=== PATIENT | female | born 1960 | race African-American/Black ===

== ENCOUNTER → 2020-11-26 01:41 | Outpatient (CLI) | payer OTHER, SELFPAY ==
[2020-11-27 08:28] LABS: SARS-CoV-2 RNA PCR Negative
== END ==
PROVIDERS: PCP Family Medicine Sports Medicine; Visit Provider Obstetrics & Gynecology Gynecology
DX: Z01.812 Encounter for preprocedural laboratory examination (principal); Z20.822 Contact with and (suspected) exposure to COVID-19
CPT/HCPCS: C9803; U0003; U0005

== ENCOUNTER 2020-11-29 01:22 | Day surgery (SDC) | payer OTHER, SELFPAY ==
[2020-11-23 09:43] VITALS: BMI 39.0
--- NOTE | 2020-11-29 07:24 | WPDHPUPDATE1 ---
History and Physical Update Update Date/Time: 11/29/20 07:24 History and Physical has been reviewed, including an updated exam of the patient. There are NO changes in the patient's condition. Risks, benefits, and alternatives have been discussed and questions answered. Patient agrees to proceed with procedure.
--- NOTE | 2020-11-29 07:24 | PM.HPGS ---
History of Present Illness History of Present Illness Consent: Risks, benefits, and alternatives have been discussed and questions answered. Patient agrees to proceed with procedure. Chief complaint: Post Menopausal Bleeding Narrative: Oneyda Echeverria is a 60 year old female with episode of postmenopausal bleeding. U/s done and endometrial lining is slightly thickened and patient has a history of endometrial polyps. Reviewed procedure including possible pathology, risks of infection, bleeding, and perforation. Patient agrees to proceed. Review of Systems Review of Systems: Narrative: not repeated day of surgery; patient states no changes in status [facility] Past Medical History Medical History (Updated 11/29/20 @ 07:29 by Kinjal Kwon MD) Autoimmune hepatitis Cyclic vomiting syndrome HTN (hypertension) Status post hysteroscopy 2011-fibroids 2018-polyps 05/2019-atrophic Social History Social History Smoking status: Never smoker Living arrangements: with family Spiritual care concerns: No Meds Home Medications and Allergies Home Medications Medication Instructions Recorded Confirmed Type albuterol sulfate 1 puff INHALATION PRN 11/23/20 11/23/20 History azathioprine 50 mg PO DAILY 11/23/20 11/23/20 History cholecalciferol (vitamin D3) 25 mcg PO DAILY 11/23/20 11/23/20 History [Vitamin D3] estradiol 10 mcg VAGINAL DAILY 11/23/20 11/23/20 History latanoprost 1 drp EACH EYE DAILY 11/23/20 11/23/20 History omeprazole 40 mg PO DAILY 11/23/20 11/23/20 History perphenazine-amitriptyline 1 tablet PO DAILY 11/23/20 11/23/20 History Allergies Allergy/AdvReac Type Severity Reaction Status Date / Time aspirin Allergy Severe Swelling Verified 11/23/20 09:15 of Lip/Tongue/Throat levofloxacin Allergy Severe Swelling Verified 11/23/20 09:15 of Lip/Tongue/Throat naproxen Allergy Severe THROAT Verified 11/23/20 09:15 SWELLING erythromycin base Allergy Unknown RASH Verified 11/23/20 09:15 sulfamethoxazole Allergy Unknown RASH Verified 11/23/20 09:15 ibuprofen AdvReac Severe Swelling Verified 11/23/20 09:15 of Lip/Tongue/Throat Exam Const: General: healthy appearing and comfortable Resp: Auscultation: clear to auscultation bilaterally Cardio: Rate: regular rate Rhythm: regular rhythm GI: GI Palp: No abdominal tenderness, Yes Soft to palpation and No Palpable mass present : External Female Exam: normal external appearance and other (atrophic) Speculum Exam - Vagina: vagina atrophic Speculum Exam - Cervix: normal appearance of the cervix Bimanual exam- vagina & uterus: normal bimanual exam Assessment and Plan Assessment and plan (1) Post-menopausal bleeding: Code(s): N95.0 - Postmenopausal bleeding Status: Acute Assessment and Plan: plan to proceed with hysteroscopy with D&C
[2020-11-29 07:31] VITALS: BP 149/88; PULSE 86; RESP 18; TEMP 36.3; O2SAT 99
[2020-11-29] MEDS: ACETAMINOPHEN 500 MG TABLET 1000 MG PO (07:57)
[2020-11-29] MEDS: LACTATED RINGERS 1,000 ML 30 ML IV CONT (08:00)
--- NOTE | 2020-11-29 08:10 | WPDANESEPPF ---
Anes - Initial Pre Proc Eval Procedure: Operation Date: 11/29/20 09:30 Proposed Procedures p Hysteroscopy Dilation and Curettage - Kinjal Kwon MD Date/Time: 11/29/20 08:10 Surgeon: Kinjal Kwon MD Pre Op Diagnosis: Post Menopausal Bleeding Patient Data Age: 60 Gender: F Height: 1.6 m Weight: 100 kg Allergies Allergy/AdvReac Type Severity Reaction Status Date / Time aspirin Allergy Severe Swelling Verified 11/23/20 09:15 of Lip/Tongue/Throat levofloxacin Allergy Severe Swelling Verified 11/23/20 09:15 of Lip/Tongue/Throat naproxen Allergy Severe THROAT Verified 11/23/20 09:15 SWELLING erythromycin base Allergy Unknown RASH Verified 11/23/20 09:15 sulfamethoxazole Allergy Unknown RASH Verified 11/23/20 09:15 ibuprofen AdvReac Severe Swelling Verified 11/23/20 09:15 of Lip/Tongue/Throat Home Medications Medication Instructions Recorded Confirmed Type albuterol sulfate 1 puff INHALATION PRN 11/23/20 11/23/20 History azathioprine 50 mg PO DAILY 11/23/20 11/23/20 History cholecalciferol (vitamin D3) 25 mcg PO DAILY 11/23/20 11/23/20 History [Vitamin D3] estradiol 10 mcg VAGINAL DAILY 11/23/20 11/23/20 History latanoprost 1 drp EACH EYE DAILY 11/23/20 11/23/20 History omeprazole 40 mg PO DAILY 11/23/20 11/23/20 History perphenazine-amitriptyline 1 tablet PO DAILY 11/23/20 11/23/20 History Patient hx anesthesia problems: none Family hx anesthesia problems: none [facility] Past Medical History Medical History (Updated 11/29/20 @ 08:12 by Johnie Cope MD) Asthma Autoimmune hepatitis Cyclic vomiting syndrome DUB (dysfunctional uterine bleeding) Eczema Glaucoma HTN (hypertension) HERIBERTO on CPAP Status post hysteroscopy 2011-fibroids 2017-polyps 05/2019-atrophic Social History Social History Smoking status: Never smoker Living arrangements: with family Spiritual care concerns: No Anes - Eval Final PreProcedure Day of Procedure 11/29/20 08:10 Patient weight: obese Heart: regular rate and rhythm Lungs: clear to auscultation and normal air movement Airway: Mallampati scale class II Neurological: alert and oriented Last oral intake: >/= 8 hours ASA classification: III Emergent: no Anesthetic plan: proceed Anesthesia type and monitoring: general LMA and ETT Informed Consent: The patient's anesthetic plan and its attendant risks and benefits were discussed with the patient/family/POA. Questions were solicited and answers provided to the satisfaction of the patient/family/POA.
--- NOTE | 2020-11-29 09:45 | PM.PROC ---
Procedure Note - Detailed Date of procedure: 11/29/20 Pre-op diagnosis: Post Menopausal Bleeding Post-op diagnosis: same Procedure performed: D&C hysteroscopy with myomectomy Description of procedure: The patient is taken to the operating room and placed under anesthesia in the dorsal lithotomy position. She has prepped and draped in the usual sterile fashion. [place] speculum is placed and the cervix is grasped on the anterior lip with a tenaculum. The uterus is sounded to 8cm. The cervix is serially dilated with difficulty to an 8 Hegar. The diagnostic hysteroscope was placed with the above-stated findings. The MyoSure device was opened and placed and under direct visualization the fibroid is removed in its entirety. The hysteroscope was removed and the medium sharp curette is used to sharply curette the endometrium until a good uterine cry was noted in all areas. All instruments are removed. Sponge, instrument, and needle counts are correct per the OR staff. Patient is awakened from anesthesia and taken to the recovery room in stable condition. Anesthesia: MAC and local Surgeon: Kinjal Kwon MD Estimated blood loss (mL): 5 Drains: No Packing: No Pathology: yes (endometrial curettings and shavings) Complications: No immediate complications Condition: stable Disposition: PACU Findings: normal appearing endometrium with anterior sessile fibroid
[2020-11-29 09:49] VITALS: BP 91/47; PULSE 85; RESP 16; O2SAT 99
[2020-11-29 10:19] VITALS: BP 112/72; PULSE 81; RESP 16
[2020-11-29] MEDS: oxyCODONE HCL (*CRX) 5 MG TAB IR PO (10:35)
[2020-11-29 10:49] VITALS: BP 124/74; PULSE 71; RESP 16
== END 2020-11-29 11:00 | disposition home or self-care (01) ==
PROVIDERS: PCP Family Medicine Sports Medicine; Visit Provider Obstetrics & Gynecology Gynecology
PROC: 0U5B8ZZ Destruction of Endometrium, Via Natural or Artificial Opening Endoscopic (ICD-10-PCS; CPT 58563; principal; 2020-11-29 09:30)
DX: N95.0 Postmenopausal bleeding (principal); D25.0 Submucous leiomyoma of uterus; K75.4 Autoimmune hepatitis; I10 Essential (primary) hypertension; G47.33 Obstructive sleep apnea (adult) (pediatric); J45.909 Unspecified asthma, uncomplicated; H40.9 Unspecified glaucoma; E66.9 Obesity, unspecified; Z68.38 Body mass index [BMI] 38.0-38.9, adult
CPT/HCPCS: 58561; 88305; A9270; J2250; J2704; J3010; J7030; J7120